=== PATIENT | male | born 1955 | race Caucasian/White ===

== ENCOUNTER → 2017-03-01 | Outpatient (CLI) | payer BC ==
[~2017-03-01] MED LIST: ADALAT CC90 MG PO; ADVAIR 250/28 DISKUS IH; ALLOPURINOL100 MG PO; ALLOPURINOL300 MG PO; AMBIEN CR12.5 MG PO; AQUAPHOR BABY HEA41%; ASPIRIN E.C. 8181 MG PO; BECONASE AQ NA42 MCG NAS; BENICAR 20MG TA20 MG PO; BENICAR40 MG PO; CLONAZEPAM2 MG PO; COREG 25MG25 MG/TAB PO; COREG CR10 MG PO; COUMADIN 1MG1 MG/TAB; COUMADIN 77.5 MG/TAB PO; COUMADIN5 MG PO; DAYPRO600 MG PO; ECOTRIN325 MG PO; EFFIENT10 MG PO; FISH OIL CONC1000 MG PO; IMDUR 60MG60 MG/TAB PO; KLONOPIN2 MG PO; LASIX 40MG TABL40 MG PO; LOTREL 10 MG-201 CAP PO; LOTREL 5 MG-101 CAP PO; MAG-OX 400400 MG/TAB PO; MULTIPLE VITAMI1 CAP PO; NITROSTAT0.4 MG/TAB SL; NORCO 325 MG-51 TAB PO; OMEGA 31000 MG PO; PRINIVIL40 MG PO; RT ADVAIR 228 DISKUS IH; RT SPIRIVA18 MCG IH; SIMVASTATIN40 MG PO; SPIRIVA18 MCG IH; TEKTURNA300 MG PO; THERA TEARS; THERA-TEARS; VICODIN ES 7.5 PO; VITAMIN E 400 U4001 PO; VYTORIN; VYTORIN PO; ZAROXOLYN5 MG PO; ZOCOR 40MG40 MG PO; ZYLOPRIM 300MG300 MG PO
== END ==
LOC: MHCPAIN 08:14
DX: G89.29 Other chronic pain (principal); M47.817 Spondylosis without myelopathy or radiculopathy, lumbosacral region; M53.3 Sacrococcygeal disorders, not elsewhere classified; Z87.891 Personal history of nicotine dependence; Z79.82 Long term (current) use of aspirin
CPT/HCPCS: G0463

== ENCOUNTER → 2017-03-09 | Outpatient (CLI) | payer BC | LOC: MHCPAIN 11:16 | DX: M47.817 Spondylosis without myelopathy or radiculopathy, lumbosacral region (principal) ==

== ENCOUNTER → 2017-03-15 | Outpatient (CLI) | payer BC | LOC: MHCPAIN 11:16 | DX: G89.29 Other chronic pain (principal); M47.27 Other spondylosis with radiculopathy, lumbosacral region; Z87.891 Personal history of nicotine dependence; Z79.82 Long term (current) use of aspirin | CPT/HCPCS: G0463 ==

== ENCOUNTER → 2017-03-30 | Outpatient (CLI) | payer MEDICARE, BC | LOC: MHCPAIN 11:06 | DX: M47.27 Other spondylosis with radiculopathy, lumbosacral region (principal); M51.17 Intervertebral disc disorders with radiculopathy, lumbosacral region | CPT/HCPCS: J1100; J2250; J3010; Q9967 ==